=== PATIENT | female | born 1965 | race Caucasian/White ===

== ENCOUNTER → 2020-11-09 | Outpatient (CLI) | payer OTHER ==
[~2020-11-09] MED LIST: BENTYL 20MG TAB20 MG PO; ELIQUIS 2.5 MG2.5 MG PO; EUTHYROX88 MCG PO; HYDROXYZINE PAM25 MG PO; METOPROLOL SUCC25 MG PO; PERCOCET 7.5-31 EACH PO
[2020-11-09 11:15] LABS: HEMOGLOBIN 14.7 gm/dl (12.3-15.3); RED BLOOD COUNT 4.87 M/UL (4.00-5.10)
[2020-11-09 11:34] LABS: BUN/CREATININE RATIO 15 (0-10)
== END ==
LOC: OPSV2 11-07 11:00 → EDSTATUS 10:30 → OPSV2 10:30
PROVIDERS: Orthopaedic Surgery
DX: Z01.818 Encounter for other preprocedural examination (principal); M17.11 Unilateral primary osteoarthritis, right knee; M21.061 Valgus deformity, not elsewhere classified, right knee
CPT/HCPCS: 36415; 80048; 81001; 85025; 87081; 93005

== ENCOUNTER → 2020-11-15 | Outpatient (CLI) | payer OTHER ==
[2020-11-15 15:56] LABS: BUN/CREATININE RATIO 20 (0-10)
== END ==
LOC: LAB 14:13
PROVIDERS: Orthopaedic Surgery
DX: Z01.812 Encounter for preprocedural laboratory examination (principal); M17.11 Unilateral primary osteoarthritis, right knee; M21.061 Valgus deformity, not elsewhere classified, right knee
CPT/HCPCS: 36415; 80048; 86850; 86870; 86880; 86900; 86901; 86920; 86922

== ENCOUNTER 2020-11-16 06:22 | Day surgery (SDC) | payer OTHER ==
[~2020-11-16] VITALS: Ht 167.6 cm; Wt 64.0 kg
[~2020-11-16 06:22] MED LIST changes: -ELIQUIS 2.5 MG2.5 MG PO; -EUTHYROX88 MCG PO; -HYDROXYZINE PAM25 MG PO; -METOPROLOL SUCC25 MG PO; -PERCOCET 7.5-31 EACH PO
[2020-11-16] MEDS ORDERED: EUTHYROX88 MCG PO (07:18)
[2020-11-16] MEDS ORDERED: HYDROXYZINE PAM25 MG PO (07:19)
[2020-11-16] MEDS ORDERED: METOPROLOL SUCC25 MG PO (07:19)
[2020-11-16] MEDS ORDERED: PERCOCET 7.5-31 EACH PO (11:10)
[2020-11-17 05:46] LABS: RED BLOOD COUNT 3.51 M/UL (4.00-5.10); WHITE BLOOD COUNT 13.6 K/UL (4.5-11.0)
[2020-11-17 06:05] LABS: BUN/CREATININE RATIO 16 (0-10)
[2020-11-17] MEDS ORDERED: ELIQUIS 2.5 MG2.5 MG PO (11:20)
== END 2020-11-17 13:49 | disposition home or self-care (01) ==
LOC: OR 06:22 → EDSTATUS 07:45 → M/S 11:32 → OR 11-17 13:49
PROVIDERS: Orthopaedic Surgery
DX: M17.11 Unilateral primary osteoarthritis, right knee (principal); M21.061 Valgus deformity, not elsewhere classified, right knee; G89.29 Other chronic pain; R60.9 Edema, unspecified; E05.00 Thyrotoxicosis with diffuse goiter without thyrotoxic crisis or storm
CPT/HCPCS: 36415; 73560; 80048; 85025; 97110-GP-CQ; 97116-GP-CQ; 97161; 97166; 97535; C1776; J0592; J0690; J1100; J2001; J2250; J2270; J2405; J2704; J2795; J3010; J3370; J7120; Q0177

== ENCOUNTER → 2021-01-17 | Outpatient (CLI) | payer OTHER ==
[~2021-01-17] MED LIST changes: +ELIQUIS 2.5 MG2.5 MG PO; +EUTHYROX88 MCG PO; +HYDROXYZINE PAM25 MG PO; +METOPROLOL SUCC25 MG PO; +PERCOCET 7.5-31 EACH PO
== END ==
LOC: EXRD 09:51
DX: R10.11 Right upper quadrant pain (principal); K82.8 Other specified diseases of gallbladder; K80.20 Calculus of gallbladder without cholecystitis without obstruction
CPT/HCPCS: 76705